=== PATIENT | male | born 1960 | race Hispanic/Latino ===

== ENCOUNTER 2016-07-23 10:09 | Outpatient (CLI) | payer MEDICARE ==
--- NOTE | 2016-07-23 12:46 | Ultrasound Report ---
ULTRASOUND ABDOMEN COMPLETE: Technique: Transabdominal ultrasound with color Doppler interrogation. History: abdominal pain. Findings: The liver echotexture is slightly heterogeneous. There appears to be subtle surface lobularity of the liver. This may represent mild cirrhotic changes. No liver mass is identified. The gallbladder dimensions are within normal limits without intraluminal stone, wall thickening, or pericholecystic fluid. The CBD is normal caliber. The pancreas is poorly visualized. No obvious pancreatic abnormality. The kidneys demonstrate no hydronephrosis or mass. Cortical thickness and echogenicity are within normal limits bilaterally. The spleen and aorta are within normal limits. The spleen measures 10 cm. No aneurysmal dilatation is noted. No ascites. IMPRESSION: Slightly abnormal liver as outlined above which may represent mild cirrhotic changes. The pancreas is obscured.
== END 2016-07-23 10:10 | disposition home or self-care (01) ==
LOC: US 10:09
PROVIDERS: ATTEND Internal Medicine Gastroenterology
DX: R10.9 Unspecified abdominal pain (principal)
CPT/HCPCS: 76700

== ENCOUNTER 2016-08-09 10:02 | Outpatient (CLI) | payer MEDICARE ==
--- NOTE | 2016-08-09 12:09 | Cat Scan Report ---
CT of the abdomen and pelvis without contrast. Findings: There is extensive pleural-parenchymal scarring in the left lower lung. There are multiple ill-defined hypodensities in the liver, the largest of which is in the left lobe adjacent to the falciform ligament. There may be a second ill-defined hypodense mass in the anterior right lobe. Several additional subcentimeter hypodensities are noted. The spleen is mildly prominent in size. A gallstone is noted. The wall of the gallbladder does not appear thickened. The pancreas is atrophic but otherwise unremarkable. There are renal vascular calcifications on the right with one possible small intrarenal stone measuring 2 mm in diameter. There is no hydronephrosis. There is a large soft tissue mass in the left renal fossa status post left nephrectomy; this is suspicious for local recurrence. This measures 7.5 x 6.8 cm and is contiguous with the left lateral margin of the abdominal aorta. There appears to be extension into the left iliopsoas muscle which is hypodense anteriorly. This component measures approximately 3.2 cm in diameter. No definite suspicious bony findings are seen. There is an infrarenal abdominal aortic aneurysm which measures 3.9 cm in diameter. Impression: 1. Large mass in the left renal fossa suspicious for recurrent renal carcinoma with direct extension into the left iliopsoas muscle. The mass also abuts the lateral margin of the abdominal aorta with an infrarenal abdominal aortic aneurysm measuring 3.9 cm in diameter. 2. Multiple hypodense masses within the liver, suspicious for metastatic disease. 3. Cholelithiasis. 4. Small right renal stone without obstruction. 5. Extensive left lower lobe pleural-parenchymal scarring.
== END 2016-08-09 10:03 | disposition home or self-care (01) ==
LOC: CT 10:02
PROVIDERS: ATTEND Urology
DX: K80.20 Calculus of gallbladder without cholecystitis without obstruction (principal); N20.0 Calculus of kidney; I71.4 Abdominal aortic aneurysm, without rupture; K86.89 Other specified diseases of pancreas; N28.89 Other specified disorders of kidney and ureter; Z90.5 Acquired absence of kidney; Z85.528 Personal history of other malignant neoplasm of kidney
CPT/HCPCS: 74176

== ENCOUNTER 2016-09-04 07:53 | Day surgery (SDC) | payer MEDICARE ==
[2016-09-04 08:47] LABS: Hemoglobin 11.6 gm/dl (11.8-15.2); Mean Corpuscular HGB Conc 32 % (32-34); Mean Corpuscular Volume 80 fl (84-94); Platelet Count 482 K/mm3 (140-440); Red Blood Count 4.48 M/mm3 (3.65-5.03); White Blood Count 12.8 K/mm3 (4.5-11.0)
[2016-09-04 08:52] LABS: Mean Corpuscular Hemoglobin 26 pg (28-32)
[2016-09-04] MEDS ORDERED: ULTRAM ONE (08:58)
[2016-09-04 09:01] LABS: INR 1.08 (0.87-1.13); Partial Thromboplastin Time 30.1 Sec. (24.2-36.6)
[2016-09-04] MEDS ORDERED: ULTRAM PO ONE (09:08)
[2016-09-04] MEDS ORDERED: VERSED IV ONE (09:09)
[2016-09-04] MEDS ORDERED: SUBLIMAZE IV ONE (09:09)
[2016-09-04] MEDS ORDERED: GELFOAM 12 X 7 TP ONE ×2 (11:22→12:00)
--- NOTE | 2016-09-04 12:39 | Cat Scan Report ---
Procedure: CT-guided liver lesion biopsy. Indication: This is a 56-year-old male with a history of left nephrectomy, now with a newly discovered mass in the liver. Impression: Successful 18-gauge core biopsy of a left hepatic lobe lesion. Technique: Informed consent was obtained from the patient, and all questions were answered. The patient's relevant history was reviewed. The patient was placed on the procedure table in the supine position. A marking grid was placed, and preliminary imaging was performed to determine an appropriate site for access. A time out was performed. The patient was prepped and draped in the usual sterile fashion. After administration of local anesthetic, a 19-gauge trocar needle was advanced into the lesion under sequential CT guidance. A 20-gauge fine needle aspiration was attempted, but no usable tissue was retrieved. A 17-gauge trocar needle was then inserted to the same location after local anesthetic, and an 18-gauge Biopince device was coaxially inserted. Two good quality 18-gauge core samples were taken. These were deemed adequate for analysis by on-site pathology. A final image was taken. A sterile dressing was placed. The patient was transported off the table in stable condition. Findings: Again seen are multiple ill-defined masses in the liver, with the dominant confluent mass being in the left medial hepatic lobe. Two solid core samples were taken from the left medial hepatic lobe. Postprocedural imaging demonstrates no perihepatic hematoma or pneumothorax.
[2016-09-04] MEDS ORDERED: NORCO 5/325 PO PRN (12:44)
[2016-09-04 14:46] VITALS: BP 102/75
== END 2016-09-04 16:20 | disposition home or self-care (01) ==
LOC: OPU 07:53 → EDSTATUS 08:30 → OPU 16:20
PROVIDERS: ATTEND Internal Medicine Hematology & Oncology
DX: C22.8 Malignant neoplasm of liver, primary, unspecified as to type (principal); Z90.5 Acquired absence of kidney
CPT/HCPCS: 36415; 47000; 77012; 85027; 85610; 85730; 88307; 88341; 88342; A4649; J2250; J3010; 88313